=== PATIENT | male | born 1965 | race Two or more races ===

== ENCOUNTER 2022-03-08 14:12 | Inpatient (IN) | payer MEDICAID ==
[~2022-03-08] VITALS: Ht 177.8 cm; Wt 79.2 kg
[2022-03-08] MEDS ORDERED: ACETAMINOPHEN 500 MG TAB PO ONE (15:15)
[2022-03-08] MEDS ORDERED: AZITHROMYCIN 250 MG TAB PO ONE (16:15)
[2022-03-08] MEDS ORDERED: IBUPROFEN 400 MG TAB PO ONE (16:15)
[2022-03-08 16:16] LABS: Hematocrit 40.1 % (41.0-53.0); Mean Corpuscular Hemoglobin 30.8 pg (28.0-32.0); Mean Corpuscular Hgb Conc. 34.9 g/dL (32.0-36.0); Mean Corpuscular Volume 88.2 fL (80.0-100.0); Red Blood Cells 4.54 10^6/uL (4.5-5.90); Red Cell Distribution Width 13.1 % (11.8-14.3)
[2022-03-08 16:24] LABS: Albumin 3.6 g/dL (3.4-5.0); Calcium 9.3 mg/dL (8.5-10.1); Potassium 3.6 mmol/L (3.5-5.1)
[2022-03-08 16:28] LABS: BUN/Creatinine Ratio 12.5; Bilirubin, Total 1.9 mg/dL (0.2-1.0); Total Protein 8.1 g/dL (6.4-8.2)
[2022-03-08 16:48] LABS: Basophils % (manual) 0 (0.0-2.0); Blast Cells 0; Eosinophils % (manual) 0 (0-7); Metamyelocytes % 0; Myelocytes % 0; Promyelocytes % 0; Reactive Lymphocytes 0
[2022-03-08] MEDS ORDERED: SODIUM CHLORIDE 0.9% 1,000 ML IV ONE ×2 (17:15→18:45)
[2022-03-08] MEDS ORDERED: levoFLOXacin 500MG 100 ML IV ONE (17:15)
[2022-03-08 17:49] LABS: Band Neutrophils % (manual) 10; Lymphocytes % (manual) 7 (10.0-50.0); Monocytes % (manual) 4 (0-12)
[2022-03-08] MEDS ORDERED: REMDESIVIR PER PHARMACY 0 ML IV SCH (18:30)
[2022-03-08] MEDS ORDERED: ALBUTEROL SULF HFA 90MCG INH 200DOSE IN PRN (18:30)
[2022-03-08] MEDS ORDERED: PANTOPRAZOLE 40 MG/10 ML VIAL INJ IV ONE (18:45)
[2022-03-08] MEDS ORDERED: REMDESIVIR 200 MG in NS 210ml LOADING DOSE ADULT IV ONE (19:00)
[2022-03-08 19:31] LABS: Magnesium 1.8 mg/dL (1.6-2.6)
[2022-03-08 19:47] LABS: Thyroid Stimulating Hormone 0.65 uIU/mL (0.358-3.74)
[2022-03-08 21:12] LABS: CRP High Sensitivity > 19.0 mg/dL (< 0.3)
[2022-03-09 01:42] VITALS: BP 126/79
[2022-03-09] MEDS: ACETAMINOPHEN 325 MG TAB PO PRN (02:08)
[2022-03-09] MEDS ORDERED: IPRATROPIUM BROM 0.5 MG/2.5ML INH SOL NEB ONE (03:10)
[2022-03-09] MEDS ORDERED: ALBUTEROL SULF 2.5 MG/0.5ML(0.5%) NEB SOLN NEB ONE (03:10)
[2022-03-09] MEDS ORDERED: ALBUTEROL SULF 2.5 MG/0.5ML(0.5%) NEB SOLN ONE (03:16)
[2022-03-09] MEDS ORDERED: IPRATROPIUM BROM 0.5 MG/2.5ML INH SOL ONE (03:17)
[2022-03-09] MEDS: SODIUM CHLORIDE 0.9% 1,000 ML IV SCH ×3 (03:17→23:25)
[2022-03-09 06:51] LABS: Basophils # (auto) 0 10 ^3/uL (0-0.2); Basophils % (auto) 0.2 % (0.0-2.0); Eosinophils # (auto) 0 10 ^3/uL (0-0.8); Hematocrit 34.9 % (41.0-53.0); Hemoglobin 11.9 g/dL (13.5-17.5); Lymphocytes # (auto) 0.4 10 ^3/uL (0.4-5.4); Lymphocytes % (auto) 2.6 % (10.0-50.0); Mean Corpuscular Hemoglobin 30.5 pg (28.0-32.0); Mean Corpuscular Volume 89.9 fL (80.0-100.0); Monocytes # (auto) 1.1 10 ^3/uL (0-1.3); Monocytes % (auto) 6.1 % (0.0-12.0); Neutrophils # (auto) 15.6 10 ^3/uL (1.6-8.6); Neutrophils % (auto) 91.1 % (37.0-80.0); Red Blood Cells 3.88 10^6/uL (4.5-5.90); Red Cell Distribution Width 13.1 % (11.8-14.3); White Blood Cell 17.2 10^3/uL (4.4-10.8)
[2022-03-09 06:52] LABS: Calcium 8.2 mg/dL (8.5-10.1); Potassium 3.6 mmol/L (3.5-5.1)
[2022-03-09 06:56] LABS: Albumin 2.9 g/dL (3.4-5.0); BUN/Creatinine Ratio 20.2
[2022-03-09 06:58] LABS: Bilirubin, Total 1.2 mg/dL (0.2-1.0)
[2022-03-09] MEDS: ZINC SULFATE 220mg CAP or TAB PO SCH (09:03)
[2022-03-09] MEDS: ENOXAPARIN SOD 40 MG/0.4 ML SYRINGE SC SCH (09:03)
[2022-03-09] MEDS: ASCORBIC ACID 1,000 MG TAB PO SCH (09:03)
[2022-03-09] MEDS: DexAMETHasone SOD PHOS 10MG/1ML VIAL INJ IV SCH (09:03)
[2022-03-09] MEDS: CHOLECALCIFEROL (VITD3) 2,000 UNIT CAP/TAB PO SCH (09:03)
[2022-03-09] MEDS: PANTOPRAZOLE 40 MG/10 ML VIAL INJ IV SCH (09:04)
[2022-03-09] MEDS: AZITHROMYCIN 500MG/ 250ML 250 ML IV SCH (09:04)
[2022-03-09] MEDS: REMDESIVIR 100mg 100 MG in SODIUM CHL 0.9% 230 ML IV SCH (15:26)
[2022-03-09 17:49] VITALS: BP 129/74
[2022-03-09 20:00] VITALS: BP 119/72
[2022-03-09] MEDS ORDERED: CALCIUM CARB 500 MG CHEW TAB PO PRN (20:30)
[2022-03-09 22:00] VITALS: BP 119/72
[2022-03-10 05:00] VITALS: BP 116/63
[2022-03-10 05:16] LABS: Basophils # (auto) 0 10 ^3/uL (0-0.2); Basophils % (auto) 0.1 % (0.0-2.0); Eosinophils # (auto) 0 10 ^3/uL (0-0.8); Hematocrit 33.9 % (41.0-53.0); Hemoglobin 11.8 g/dL (13.5-17.5); Lymphocytes # (auto) 0.8 10 ^3/uL (0.4-5.4); Lymphocytes % (auto) 3.9 % (10.0-50.0); Mean Corpuscular Hemoglobin 31.3 pg (28.0-32.0); Mean Corpuscular Hgb Conc. 34.7 g/dL (32.0-36.0); Mean Corpuscular Volume 90.1 fL (80.0-100.0); Monocytes % (auto) 5.2 % (0.0-12.0); Neutrophils # (auto) 17.8 10 ^3/uL (1.6-8.6); Neutrophils % (auto) 90.8 % (37.0-80.0); Red Blood Cells 3.77 10^6/uL (4.5-5.90); Red Cell Distribution Width 13.1 % (11.8-14.3); White Blood Cell 19.5 10^3/uL (4.4-10.8)
[2022-03-10 05:34] LABS: Albumin 2.6 g/dL (3.4-5.0); BUN/Creatinine Ratio 21.3; Calcium 8.2 mg/dL (8.5-10.1); Potassium 3.7 mmol/L (3.5-5.1)
[2022-03-10 05:37] LABS: Bilirubin, Total 0.8 mg/dL (0.2-1.0); Total Protein 5.7 g/dL (6.4-8.2)
[2022-03-10] MEDS: AZITHROMYCIN 500MG/ 250ML 250 ML IV SCH (09:10)
[2022-03-10 09:13] VITALS: BP 118/70
[2022-03-10] MEDS: PANTOPRAZOLE 40 MG/10 ML VIAL INJ IV SCH (09:13)
[2022-03-10] MEDS: DexAMETHasone SOD PHOS 10MG/1ML VIAL INJ IV SCH (09:13)
[2022-03-10] MEDS: ENOXAPARIN SOD 40 MG/0.4 ML SYRINGE SC SCH (09:15)
[2022-03-10] MEDS: ZINC SULFATE 220mg CAP or TAB PO SCH (09:15)
[2022-03-10] MEDS: CHOLECALCIFEROL (VITD3) 2,000 UNIT CAP/TAB PO SCH (09:15)
[2022-03-10] MEDS: ASCORBIC ACID 1,000 MG TAB PO SCH (09:16)
[2022-03-10] MEDS: ACETAMINOPHEN 500 MG TAB PO PRN (09:18)
[2022-03-10] MEDS ORDERED: guaiFENesin-DM 100/10mg/5ml SYR PO ONE (10:15)
[2022-03-10 12:35] VITALS: BP 123/72
[2022-03-10] MEDS: REMDESIVIR 100mg 100 MG in SODIUM CHL 0.9% 230 ML IV SCH (15:14)
[2022-03-10 16:36] VITALS: BP 117/79
[2022-03-10 20:00] VITALS: BP 118/70
[2022-03-10] MEDS: guaiFENesin-DM 100/10mg/5ml SYR PO PRN (20:35)
[2022-03-10 22:00] VITALS: BP 118/70
[2022-03-11] VITALS (7 sets, daily range): BP systolic 102–120; BP diastolic 55–74
[2022-03-11] MEDS: ACETAMINOPHEN 500 MG TAB PO PRN (01:06)
[2022-03-11] MEDS: guaiFENesin-DM 100/10mg/5ml SYR PO PRN ×3 (01:13→21:05)
[2022-03-11 06:25] LABS: Basophils # (auto) 0.1 10 ^3/uL (0-0.2); Basophils % (auto) 0.4 % (0.0-2.0); Eosinophils # (auto) 0 10 ^3/uL (0-0.8); Eosinophils % (auto) 0.2 % (0.0-7.0); Hematocrit 33.2 % (41.0-53.0); Hemoglobin 11.6 g/dL (13.5-17.5); Lymphocytes % (auto) 6.6 % (10.0-50.0); Mean Corpuscular Hemoglobin 30.9 pg (28.0-32.0); Mean Corpuscular Volume 88.3 fL (80.0-100.0); Monocytes % (auto) 6.1 % (0.0-12.0); Neutrophils # (auto) 13.6 10 ^3/uL (1.6-8.6); Neutrophils % (auto) 86.7 % (37.0-80.0); Red Blood Cells 3.76 10^6/uL (4.5-5.90); Red Cell Distribution Width 13.1 % (11.8-14.3); White Blood Cell 15.7 10^3/uL (4.4-10.8)
[2022-03-11 06:47] LABS: Potassium 3.4 mmol/L (3.5-5.1)
[2022-03-11 06:55] LABS: Albumin 2.8 g/dL (3.4-5.0); BUN/Creatinine Ratio 21.7; Bilirubin, Total 0.7 mg/dL (0.2-1.0); Total Protein 6.5 g/dL (6.4-8.2)
[2022-03-11] MEDS: DexAMETHasone SOD PHOS 10MG/1ML VIAL INJ IV SCH (11:23)
[2022-03-11] MEDS: PANTOPRAZOLE 40 MG/10 ML VIAL INJ IV SCH (11:24)
[2022-03-11] MEDS: AZITHROMYCIN 500MG/ 250ML 250 ML IV SCH (11:24)
[2022-03-11] MEDS: ZINC SULFATE 220mg CAP or TAB PO SCH (11:27)
[2022-03-11] MEDS: ENOXAPARIN SOD 40 MG/0.4 ML SYRINGE SC SCH (11:28)
[2022-03-11] MEDS: CHOLECALCIFEROL (VITD3) 2,000 UNIT CAP/TAB PO SCH (11:28)
[2022-03-11] MEDS: ASCORBIC ACID 1,000 MG TAB PO SCH (11:28)
[2022-03-11] MEDS: ACETAMINOPHEN 325 MG TAB PO PRN ×2 (14:44→21:05)
[2022-03-11] MEDS: REMDESIVIR 100mg 100 MG in SODIUM CHL 0.9% 230 ML IV SCH (17:59)
[2022-03-12] VITALS (8 sets, daily range): BP systolic 101–136; BP diastolic 62–81
[2022-03-12 05:26] LABS: Basophils # (auto) 0 10 ^3/uL (0-0.2); Basophils % (auto) 0.1 % (0.0-2.0); Eosinophils # (auto) 0 10 ^3/uL (0-0.8); Eosinophils % (auto) 0.1 % (0.0-7.0); Hematocrit 35.5 % (41.0-53.0); Hemoglobin 12.1 g/dL (13.5-17.5); Lymphocytes # (auto) 0.9 10 ^3/uL (0.4-5.4); Lymphocytes % (auto) 6.8 % (10.0-50.0); Mean Corpuscular Hemoglobin 30.3 pg (28.0-32.0); Mean Corpuscular Hgb Conc. 34.2 g/dL (32.0-36.0); Mean Corpuscular Volume 88.6 fL (80.0-100.0); Monocytes % (auto) 7.4 % (0.0-12.0); Neutrophils # (auto) 11.8 10 ^3/uL (1.6-8.6); Neutrophils % (auto) 85.6 % (37.0-80.0); Red Blood Cells 4.01 10^6/uL (4.5-5.90); Red Cell Distribution Width 13.2 % (11.8-14.3); White Blood Cell 13.8 10^3/uL (4.4-10.8)
[2022-03-12 05:58] LABS: Potassium 3.3 mmol/L (3.5-5.1)
[2022-03-12 06:07] LABS: Albumin 2.7 g/dL (3.4-5.0); BUN/Creatinine Ratio 23.8; Bilirubin, Total 0.6 mg/dL (0.2-1.0); Calcium 8.3 mg/dL (8.5-10.1); Total Protein 6.6 g/dL (6.4-8.2)
[2022-03-12] MEDS ORDERED: POTASSIUM CHL 20 Meq TABLET PO ONE (06:51)
[2022-03-12] MEDS: CHOLECALCIFEROL (VITD3) 2,000 UNIT CAP/TAB PO SCH (07:59)
[2022-03-12] MEDS: ZINC SULFATE 220mg CAP or TAB PO SCH (07:59)
[2022-03-12] MEDS: ASCORBIC ACID 1,000 MG TAB PO SCH (07:59)
[2022-03-12] MEDS: PANTOPRAZOLE 40 MG/10 ML VIAL INJ IV SCH (08:00)
[2022-03-12] MEDS: AZITHROMYCIN 500MG/ 250ML 250 ML IV SCH (11:04)
[2022-03-12] MEDS: DexAMETHasone SOD PHOS 10MG/1ML VIAL INJ IV SCH (11:04)
[2022-03-12] MEDS: ENOXAPARIN SOD 40 MG/0.4 ML SYRINGE SC SCH (11:04)
[2022-03-12] MEDS: guaiFENesin-DM 100/10mg/5ml SYR PO PRN ×3 (12:36→16:23)
[2022-03-12] MEDS: ACETAMINOPHEN 325 MG TAB PO PRN ×2 (12:56→20:16)
[2022-03-12] MEDS: REMDESIVIR 100mg 100 MG in SODIUM CHL 0.9% 230 ML IV SCH (15:30)
[2022-03-12] MEDS: AMOXICILLIN/CLAVUL 875 MG TAB PO SCH (22:00)
[2022-03-13] MEDS: guaiFENesin-DM 100/10mg/5ml SYR PO PRN ×3 (02:20→19:59)
[2022-03-13 05:00] VITALS: BP 109/61
[2022-03-13 09:00] VITALS: BP 106/62
[2022-03-13] MEDS: AZITHROMYCIN 500MG/ 250ML 250 ML IV SCH (09:46)
[2022-03-13] MEDS: AMOXICILLIN/CLAVUL 875 MG TAB PO SCH ×2 (09:46→22:00)
[2022-03-13] MEDS: DexAMETHasone 4 MG TAB PO SCH (09:47)
[2022-03-13] MEDS: ENOXAPARIN SOD 40 MG/0.4 ML SYRINGE SC SCH (09:47)
[2022-03-13 13:00] VITALS: BP 99/53
[2022-03-13 17:00] VITALS: BP 106/65
[2022-03-13 20:00] VITALS: BP 106/65
[2022-03-13 22:00] VITALS: BP 102/64
[2022-03-13] MEDS: ACETAMINOPHEN 325 MG TAB PO PRN (22:44)
[2022-03-14 05:00] VITALS: BP 121/72
[2022-03-14 06:27] LABS: Basophils # (auto) 0 10 ^3/uL (0-0.2); Basophils % (auto) 0.3 % (0.0-2.0); Eosinophils # (auto) 0 10 ^3/uL (0-0.8); Eosinophils % (auto) 0.1 % (0.0-7.0); Hematocrit 36.1 % (41.0-53.0); Hemoglobin 12.6 g/dL (13.5-17.5); Mean Corpuscular Hemoglobin 31.1 pg (28.0-32.0); Mean Corpuscular Hgb Conc. 34.8 g/dL (32.0-36.0); Mean Corpuscular Volume 89.5 fL (80.0-100.0); Monocytes # (auto) 0.8 10 ^3/uL (0-1.3); Monocytes % (auto) 6.8 % (0.0-12.0); Neutrophils # (auto) 10.2 10 ^3/uL (1.6-8.6); Neutrophils % (auto) 84.8 % (37.0-80.0); Nucleated Red Blood Cells % 0.1 %; Red Blood Cells 4.03 10^6/uL (4.5-5.90); Red Cell Distribution Width 13.2 % (11.8-14.3)
[2022-03-14 06:45] LABS: Albumin 2.6 g/dL (3.4-5.0); Calcium 8.8 mg/dL (8.5-10.1); Potassium 3.6 mmol/L (3.5-5.1)
[2022-03-14 06:48] LABS: BUN/Creatinine Ratio 24.7
[2022-03-14 06:50] LABS: Bilirubin, Total 0.7 mg/dL (0.2-1.0); Total Protein 6.8 g/dL (6.4-8.2)
[2022-03-14 08:48] VITALS: BP 122/70
[2022-03-14] MEDS: DexAMETHasone 4 MG TAB PO SCH (09:44)
[2022-03-14] MEDS: AMOXICILLIN/CLAVUL 875 MG TAB PO SCH (09:44)
[2022-03-14] MEDS: ENOXAPARIN SOD 40 MG/0.4 ML SYRINGE SC SCH (09:44)
[2022-03-14] MEDS: guaiFENesin-DM 100/10mg/5ml SYR PO PRN ×3 (09:45→21:34)
[2022-03-14] MEDS ORDERED: cefTRIAXone 1GM/50ML D5W 50 ML IV ONE (10:15)
[2022-03-14] MEDS: ACETAMINOPHEN 325 MG TAB PO PRN ×2 (11:21→21:34)
[2022-03-14 13:00] VITALS: BP 140/64
[2022-03-14 17:25] VITALS: BP 106/68
[2022-03-14 18:41] VITALS: BP 106/86
[2022-03-14 22:00] VITALS: BP 102/63
[2022-03-15 05:00] VITALS: BP 116/61
[2022-03-15 05:43] LABS: Albumin 2.7 g/dL (3.4-5.0); Calcium 8.2 mg/dL (8.5-10.1)
[2022-03-15 05:47] LABS: BUN/Creatinine Ratio 25.9; Bilirubin, Total 0.5 mg/dL (0.2-1.0); Total Protein 6.2 g/dL (6.4-8.2)
[2022-03-15 06:11] LABS: Basophils # (auto) 0 10 ^3/uL (0-0.2); Basophils % (auto) 0.1 % (0.0-2.0); Eosinophils # (auto) 0 10 ^3/uL (0-0.8); Eosinophils % (auto) 0.3 % (0.0-7.0); Hematocrit 37.7 % (41.0-53.0); Hemoglobin 12.9 g/dL (13.5-17.5); Lymphocytes % (auto) 8.1 % (10.0-50.0); Mean Corpuscular Hemoglobin 30.6 pg (28.0-32.0); Mean Corpuscular Hgb Conc. 34.3 g/dL (32.0-36.0); Mean Corpuscular Volume 89.2 fL (80.0-100.0); Monocytes # (auto) 0.9 10 ^3/uL (0-1.3); Monocytes % (auto) 7.8 % (0.0-12.0); Neutrophils # (auto) 9.9 10 ^3/uL (1.6-8.6); Neutrophils % (auto) 83.7 % (37.0-80.0); Red Blood Cells 4.23 10^6/uL (4.5-5.90); Red Cell Distribution Width 13.3 % (11.8-14.3); White Blood Cell 11.9 10^3/uL (4.4-10.8)
[2022-03-15 09:00] VITALS: BP 109/66
[2022-03-15] MEDS ORDERED: cefTRIAXone 1GM/50ML D5W 50 ML IV SCH (09:00)
[2022-03-15] MEDS: DexAMETHasone 4 MG TAB PO SCH (09:20)
[2022-03-15] MEDS: ENOXAPARIN SOD 40 MG/0.4 ML SYRINGE SC SCH (09:21)
[2022-03-15] MEDS: ACETAMINOPHEN 325 MG TAB PO PRN (12:01)
[2022-03-15 13:00] VITALS: BP 113/70
[2022-03-15 13:55] VITALS: BP 146/69
== END 2022-03-15 14:37 | disposition home or self-care (01) | DRG 177 ==
LOC: ER 14:12 → OVERFLOW 18:31 → EAST 03-09 17:23
PROVIDERS: ADMIT Nurse Practitioner Family; ATTEND Internal Medicine Pulmonary Disease
PROC: XW033E5 Introduction of Remdesivir Anti-infective into Peripheral Vein, Percutaneous Approach, New Technology Group 5 (ICD-10-PCS; principal; 2022-03-08)
DX: U07.1 COVID-19 (principal); J12.82 Pneumonia due to coronavirus disease 2019; J96.01 Acute respiratory failure with hypoxia; J15.6 Pneumonia due to other Gram-negative bacteria; E87.1 Hypo-osmolality and hyponatremia
CPT/HCPCS: 36415; 36600; 71045; 80053; 82306; 82728; 82805; 83036; 83605; 83615; 83690; 83735; 83880; 84443; 85007; 85025; 85027; 85379; 86141; 87040; 87426; 87804; 93005; 94640; 96361; 96365; 96368; 96375; C9113; G0378; J0696; J1100; J1956